=== PATIENT | female | born 1940 | race Caucasian/White ===

== ENCOUNTER 2021-01-14 14:54 | Inpatient (IN) | payer OTHER ==
[~2021-01-14] VITALS: Ht 152.4 cm; Wt 69.9 kg
--- NOTE | 2021-01-14 15:20 | NUR ---
FARHAN FROM HOME TO ER BED 12. AWAKE, ALERT BUT CONFUSED. NOT IN RESP DISTRESS. AMBULATORY. BROUGHT IN FOR GRAVE DISABILITY AND DANGER TO SELF. PT IS ON 5150 HOLD WRIITEN ON 01/14/21 @ 1300. PT WAS REPORTED TO BE PARANOID AND WONDERING OUTSIDE THE HOUSE. PT DENIES ANY SUICIDAL NOR HOMICAIDAL IDEATION. MD WAS AT THE BEDSIDE FOR EVAL.
[2021-01-14] MEDS ORDERED: METF-440 PO (15:35)
[2021-01-14] MEDS ORDERED: CHOL100062 PO (15:35)
[2021-01-14] MEDS ORDERED: FURO40TA5 PO (15:35)
[2021-01-14] MEDS ORDERED: SIMV-46 PO (15:35)
[2021-01-14 16:17] LABS: BASOPHILS % (AUTO) 0.4 % (0.0-2.0); EOSINOPHILS % (AUTO) 1.6 % (0.0-6.0); HEMATOCRIT 35 % (33-45); HEMOGLOBIN 11.8 g/dL (11.5-14.8); LYMPHOCYTES % (AUTO) 23.1 % (20.0-44.0); MEAN CORPUSCULAR HGB CONC 34 g/dl (31.0-36.0); MEAN CORPUSCULAR VOLUME 93 fL (82-100); MONOCYTES # (AUTO) 0.6 /CMM (0.1-1.30); MONOCYTES % (AUTO) 7.3 % (2.0-12.0); NEUTROPHILS # (AUTO) 5.9 /CMM (1.8-8.9); NEUTROPHILS % (AUTO) 67.6 % (43.0-81.0); PLATELET COUNT (AUTO) 239 /CMM (150-450); RED BLOOD CELL COUNT(AUTO) 3.77 MIL/uL (4.0-5.2); WHITE BLOOD COUNT (AUTO) 8.8 K/uL (4.3-11.0)
[2021-01-14 16:25] LABS: CALCIUM, SERUM 9.2 mg/dL (8.5-10.1); CARBON DIOXIDE 29 mmol/L (21-32); CHLORIDE 102 mmol/L (98-107); CREATININE 0.9 mg/dL (0.6-1.3); GLUCOSE 120 mg/dL (74-106); SODIUM SERUM 139 mmol/L (136-145); UREA NITROGEN, BLOOD 25 mg/dL (7-18)
[2021-01-14 16:35] LABS: BILIRUBIN,URINE Negative (NEGATIVE); COLOR,URINE YELLOW (YELLOW); LEUKOCYTE ESTERASE ,URINE Negative (NEGATIVE); NITRITE, URINE Negative (NEGATIVE); PROTEIN,URINE Negative (NEGATIVE); UGLUCOSE Negative (NEGATIVE); UROBILINOGEN,URINE 0.2 EU/dL (0.2)
[2021-01-14 16:40] LABS: ALANINE AMINOTRANSFERASE 16 U/L (12-78); ALBUMIN 3.4 g/dL (3.4-5.0); ALKALINE PHOSPHATASE 53 U/L (46-116); ASPARTATE AMINOTRANSFERASE 17 U/L (15-37); BILIRUBIN,DIRECT 0.1 mg/dL (0.0-0.2); BILIRUBIN,TOTAL 0.3 mg/dL (0.2-1.0); TOTAL PROTEIN, SERUM 6.7 g/dL (6.4-8.2)
[2021-01-14 16:41] LABS: ACETAMINOPHEN < 0 ug/ml (10-30); ALCOHOL, BLOOD < 3 mg/dL (0-0)
--- NOTE | 2021-01-14 17:28 | NUR ---
COVID 19 rapid Antigen results: NEGATIVE
[2021-01-14] MEDS ORDERED: METFORMIN 500 MG TABLET ONE (17:29)
[2021-01-14] MEDS ORDERED: METFORMIN 500 MG TABLET PO SCH (17:30)
--- NOTE | 2021-01-14 18:28 | NUR ---
IAN OZUNA () [phone] - CELL
--- NOTE | 2021-01-14 18:29 | NUR ---
US AT BEDSIDE
--- NOTE | 2021-01-14 19:19 | NUR ---
report given to zach salmeron for kathi
--- NOTE | 2021-01-14 19:57 | NUR ---
PT TRANSFERRED TO GPS
[2021-01-14 20:00] VITALS: BP 152/73
--- NOTE | 2021-01-14 20:00 | NUR ---
GPS RN-ADMISSION NOTES: ADMITTED AN 80-YR OLD FEMALE, FROM HOME. ADMITTED ON 5150 FOR DTS/GD. PER HOLD, PT PRESENTED CONFUSED, INCOHERENT, DISORIENTED, UNABLE TO ANSWER QUESTIONS APPROPRIATELY OR FOLLOW BASIC INSTRUCTIONS. PT JUST KEPT SAYING "SOMEONE JUST FLASHED DOWN THE KIDS ON THE TOILET" PT HAD SERVED LAUNDRY DETERGENT FOR IMAGINARY KIDS TO DRINK. PT'S EXPRESSED CONCERN FOR PT'S SAFETY SHE WANDERS OUT OF THE HOUSE, GETTING LOST, UNABLE TO RETURN TO HOME, CROSSING STREETS PLACING SELF AT RISK TO BE RUN OVER BY CARS. UPON FACE TO FACE ASSESSMENT, PATIENT IS A/OX1-2, CONFUSED, ANXIOUS, DISORGANIZED AND PARANOID. PT WAS ADVISED OF HER HOLD. PT'S RIGHTS HANDBOOK AND A GUIDE TO PRESCRIPTION MEDICATIONS GIVEN. IN NO APPARENT DISTRESS NOTED. BELONGINGS WERE INVENTORIED AND CHECKED FOR CONTRABAND. PT. IS UNDER THE PSYCHIATRIC CARE OF DR. KELLEY ORDERS OBTAINED AND UNDER THE MEDICAL CARE OF DR. PARSONS. SKIN BODY ASSESSMENT DONE. DENIES PAIN OR DISCOMFORT AT THIS TIME. OFFERED FLU/PNEUMONIA VACCINE, PATIENT STATES "NO, I DON'T WANT IT". SAFETY PRECAUTIONS IN PLACE. BED LOCKED AND IN LOWEST POSITION. SIDE RAILS UP X2. WILL CONTINUE TO MONITOR Q15 MIN ROUNDS FOR SAFETY AND BEHAVIOR.
[2021-01-14] MEDS ORDERED: ACETAMINOPHEN 325 MG TABLET PO PRN (20:30)
[2021-01-14] MEDS ORDERED: BLOOD SUGAR DIAGNOSTIC 1 EACH STRIP IN ONE (20:30)
[2021-01-14] MEDS ORDERED: MAGNESIUM HYDROXIDE 30 ML UDC PO PRN (20:30)
[2021-01-14] MEDS ORDERED: MAG HYDROX/AL HYDROX/SIMETH 30 ML UDC PO PRN (20:30)
[2021-01-15 06:48] LABS: CHOLESTEROL 110 mg/dL (<200); CREATININE 0.8 mg/dL (0.6-1.3); HDL CHOLESTEROL 52 mg/dL (40-60); LDL 47 mg/dL (0-99); TRIGLYCERIDES 66 mg/dL (30-150)
[2021-01-15 08:11] VITALS: BP 168/70
[2021-01-15] MEDS: METFORMIN 500 MG TABLET PO SCH ×2 (08:41→16:24)
[2021-01-15] MEDS: CHOLECALCIFEROL 1,000 UNIT TABLET (VIT D3) PO SCH (08:41)
--- NOTE | 2021-01-15 09:00 | NUR ---
RN NOTE- PT ALERT ORIENTED TO PERSON ONLY CONFUSED MED COMPLIANT , ELEVATED LOWER EXTREMITIES EDEMATOUS, NO BHAVIORAL ISSUES PO INTAKE GOOD
--- NOTE | 2021-01-15 09:20 | NUR ---
WOUND CARE CONSULT: PT SEEN FOR SKIN ASSESSMENT OF FEET AND LOWER LEGS. PT NOTED TO HAVE SOME CALLUSES TO FEET AND SOME EDEMA TO ANKLE AREAS. LEGS ELEVATED. WILL SEE PRN.
[2021-01-15] MEDS ORDERED: LORAZEPAM 0.5 MG TABLET PO PRN (10:30)
[2021-01-15] MEDS: busPIRone 5 MG TABLET PO SCH ×2 (12:46→16:24)
[2021-01-15] MEDS: risperiDONE 0.25 MG TABLET PO SCH ×2 (12:46→21:33)
[2021-01-15 16:00] VITALS: BP 139/75
[2021-01-15] MEDS: FUROSEMIDE 40 MG TABLET PO SCH (17:53)
[2021-01-15] MEDS: SIMVASTATIN 20 MG TABLET PO SCH (17:54)
--- NOTE | 2021-01-15 20:00 | NUR ---
RN NOTE PATIENT REFUSED VITALS DESPITE OF RISKS & BENEFITS EXPLANATIONS , GETS AGITATED, ANXIOUS, RESTLESS WHEN APPROACHED AGAIN. WILL TRY AGAIN LATER.
[2021-01-15] MEDS: ZOLPIDEM TARTRATE 5 MG TABLET PO PRN (23:36)
--- NOTE | 2021-01-15 23:37 | NUR ---
RN NOTE: INSOMNIA PATIENT IS UNABLE TO SLEEP, PRN AMBIEN 5 MG 1 TAB PO GIVEN. WILL CONTINUE TO MONITOR.
--- NOTE | 2021-01-16 06:56 | NUR ---
RN NOTE PATIENT REMAINS CONFUSED, FORGETFUL, ANXIOUS AT TIMES BUT REDIRECTABLE. SLEPT INTERMITTENTLY AT NIGHT. ALL NEEDS MET. KEPT CLEAN & DRY. WILL ENDORSE TO AM RN FOR CONTINUITY OF CARE.
[2021-01-16 08:00] VITALS: BP 131/89
[2021-01-16] MEDS: CHOLECALCIFEROL 1,000 UNIT TABLET (VIT D3) PO SCH (08:33)
[2021-01-16] MEDS: METFORMIN 500 MG TABLET PO SCH ×2 (08:34→16:47)
[2021-01-16] MEDS: risperiDONE 0.25 MG TABLET PO SCH ×2 (08:34→21:28)
[2021-01-16] MEDS: busPIRone 5 MG TABLET PO SCH ×3 (08:34→16:47)
--- NOTE | 2021-01-16 09:00 | NUR ---
RN NOTE- PT ALERT ORIENTED TO PERSON ONLY CONFUSED MED COMPLIANT , ELEVATED LOWER EXTREMITIES EDEMATOUS, NO BEHAVIORAL ISSUES PO INTAKE GOOD
--- NOTE | 2021-01-16 13:35 | NUR ---
Family Contact: SW spoke to the pts , Bala ([phone]), who stated that the pt has been having auditory and visual hallucinations since they got 2 years ago. Pts stated that he is not sure when the hallucinations started for her. SW discussed pts aftercare and how the pt stopped taking certain psych medications because she did not like how they made her feel. Pts stated that in terms of discharge planning he would like the pt to return home.
[2021-01-16 16:00] VITALS: BP 118/63
[2021-01-16] MEDS: FUROSEMIDE 40 MG TABLET PO SCH (17:21)
[2021-01-16] MEDS: SIMVASTATIN 20 MG TABLET PO SCH (17:21)
--- NOTE | 2021-01-16 19:30 | NUR ---
RN NOTES RECEIVED PATIENT AWAKE AND IN BED, NO S/S OR COMPLAINTS OF PAIN AT THIS TIME. PATIENT IS DISPLAYING NO S/S OF APPARENT DISTRESS AT THIS TIME. PATIENT'S BREATHING IS UNLABORED WITH EQUAL RISE AND FALL OF THE CHEST. PATIENT IS ALERT AND ORIENTED X 1-2 ON ROOM AIR WITH SPO2 96%. PATIENT IS COMPLIANT WITH MEDICATION, DISORGANIZED, RESPONDING TO INTERNAL STIMULI, ANXIOUS AND COOPERATIVE. PATIENT DENIES SUICIDE IDEATIONS AND HOMICIDAL IDEATIONS AT THIS TIME. PATIENT ASSISTED WITH TURNING AND REPOSITIONING Q2HR AND PRN FOR COMFORT AND CIRCULATION. PATIENT HAS NO NEEDS AT THIS TIME. SAFETY MEASURE PROVIDED, PATIENT BED SIDE RAILS UP X 2 FOR SAFETY, BED IS LOCKED AND LOW. WILL CONTINUE TO MONITOR AND ASSESS THROUGHOUT THE SHIFT
[2021-01-16 21:10] VITALS: BP 137/77
[2021-01-17 08:00] VITALS: BP 141/82
--- NOTE | 2021-01-17 09:11 | NUR ---
UR Note: ELLEN returned the call of Jordyn Ceja ([phone]), [employer] Instructor, and left a voicemail stating that the SW will be available for a live clinical at 4pm EST.
[2021-01-17] MEDS: CHOLECALCIFEROL 1,000 UNIT TABLET (VIT D3) PO SCH (09:30)
[2021-01-17] MEDS: METFORMIN 500 MG TABLET PO SCH ×2 (09:30→16:37)
[2021-01-17] MEDS: risperiDONE 0.25 MG TABLET PO SCH ×2 (09:30→21:14)
[2021-01-17] MEDS: busPIRone 5 MG TABLET PO SCH ×3 (09:30→16:37)
[2021-01-17] MEDS: Z GUARD REMEDY 4 OZ OINT TP SCH ×2 (11:45→21:17)
--- NOTE | 2021-01-17 13:05 | NUR ---
UR Note: SW called Jordyn Ceja ([phone]), [employer] Customer Sales Distributor, and left a voicemail providing the pts clinical and asking for additional days of authorization.
--- NOTE | 2021-01-17 13:48 | NUR ---
UR Note: ELLEN called [facility] performance improvement coordinator, Tiffanie ([phone]), and left a voicemail stating that the ELLEN would like aftercare providers in network to be faxed to the SW at [phone].
--- NOTE | 2021-01-17 13:50 | NUR ---
UR Note: Jordyn Ceja ([phone]), [employer] Winding Lathe Operator, contacted the SW and stated that the pt has been authorized an additional 4 days with coverage until Thursday, 01/21.
--- NOTE | 2021-01-17 15:35 | NUR ---
Initial Discharge Plan: Pt currently resides at her home located at [address] [place] [address] with her , Bala ([phone]). Per pt, she wants to return to her home and pts wants her home as well. SW will work with the pt and the MD regarding appropriate discharge planning. SW will form a safe and proper discharge.
[2021-01-17 16:00] VITALS: BP 150/60
[2021-01-17] MEDS: SIMVASTATIN 20 MG TABLET PO SCH (17:05)
[2021-01-17] MEDS: FUROSEMIDE 40 MG TABLET PO SCH (17:05)
--- NOTE | 2021-01-17 19:35 | NUR ---
RN NOTES RECEIVED PT IN A WHEELCHAIR RESTING COMFORTABLY OUTSIDE THE PT'S ROOM. PATIENT IN NO S/SX OF ACUTE DISTRESS AT THIS TIME. NO SOB NOTED. PATIENT'S BREATHING IS EVEN AND UNLABORED. PATIENT AROUSABLE TO VERBAL STIMULI, CALM BUT DISORIENTED & CONFUSED. NO SIGNS OF BEHAVIORAL AGGRESSION AT THE TIME OF RECEIVED, NO SUICIDE THOUGHTS AND HOMICIDAL IDEATIONS AT THIS TIME. PATIENT ASSISTED IN TURNING AND REPOSITIONING Q2HR AND PRN FOR COMFORT AND CIRCULATION. SAFETY AND COMFORT MEASURES HAVE BEEN PROVIDED AND IMPLEMENTED. PATIENT BED ALARM IS ON, BED'S SIDE RAILS UP X2 AND BED IS LOCKED AND LOW. . WILL CONTINUE TO MONITOR AND REASSESS FOR ANY CHANGES PER GPS PROTOCOL AND WILL CARRY OUT ANY ONGOING AND ACTIVE MD ORDER
[2021-01-17 21:01] VITALS: BP 135/67
[2021-01-17] MEDS: Z GUARD REMEDY 4 OZ OINT TP PRN (21:14)
[2021-01-17] MEDS: ZOLPIDEM TARTRATE 5 MG TABLET PO PRN (23:35)
--- NOTE | 2021-01-17 23:35 | NUR ---
RN NOTES PRN MEDS GIVEN FOR SLEEP (RUTH) COMPUTER AIDED DESIGN TECHNICIAN MADE AWARE. WILL CONTINUE TO ASSESS AND MONITOR THROUGHOUT THE SHIFT.
--- NOTE | 2021-01-18 06:15 | NUR ---
BEN NOTES PATIENT SEEN AND NOTED TO BE SITTING ON THE CHAIR BANGING HER R ARM ON THE TABLE TRAY OF THE [facility], SALES PERSON RESPONDED AND ADVISED PRIMARY RN, NOTED SKIN TEAR ON THE R FOREARM 5.5X3CM NOTED WITH SLIGHT BLEEDING. VANESSA CONTRERAS MADE AWARE. PROVIDED INITIAL TX; CLEANSE WITH NS AND PAT DRY COVER WITH DRY DRESSING; SECURED WITH KERLIX AND TAPE. UNABLE TO ASSESS PAIN DUE TO MENTAL STATUS. VANESSA CONTRERAS MADE AWARE. WILL CONTINUE TO ASSESS AND MONITOR UNTIL THE END OF THE SHIFT. Addendum: 01/18/21 at 0623 by RAQUEL FOSS RN ADDENDUM- TOOK PICTURE AND PLACED IN THE CHART, WILL REQUEST FOR WOUND CONSULT. VANESSA CONTRERAS MADE AWARE.
--- NOTE | 2021-01-18 06:20 | NUR ---
RN NOTES ATTEMPTED TO CALL PT'S FAMILY (IAN -[phone]) TO INFORM ABOUT THE INCIDENT OF SKIN WILMER OF THE PT, WAS ROUTED TO , REQUESTED FOR CALLBACK. RETURN CHECKER MADE AWARE. WILL ENDORSE TO AM SHIFT FOR FOLLOW THROUGH.
[2021-01-18 08:00] VITALS: BP 125/59
[2021-01-18] MEDS: risperiDONE 0.25 MG TABLET PO SCH ×2 (08:10→20:07)
[2021-01-18] MEDS: CHOLECALCIFEROL 1,000 UNIT TABLET (VIT D3) PO SCH (08:10)
[2021-01-18] MEDS: busPIRone 5 MG TABLET PO SCH ×3 (08:10→17:00)
[2021-01-18] MEDS: METFORMIN 500 MG TABLET PO SCH ×2 (08:10→17:00)
[2021-01-18] MEDS: Z GUARD REMEDY 4 OZ OINT TP SCH ×2 (10:17→20:08)
--- NOTE | 2021-01-18 11:17 | NUR ---
WOUND CARE CONSULT: SKIN TEAR NOTED TO RT ARM. PT IS AGITATED AT TIMES. RECOMMENDATIONS MADE FOR SKIN PROTECTION AND WOUND CARE. DISCUSSED WITH NURSING STAFF. MD IN AGREEMENT WITH PLAN OF CARE.
[2021-01-18 16:00] VITALS: BP 114/59
[2021-01-18] MEDS: SIMVASTATIN 20 MG TABLET PO SCH ×2 (17:00→17:37)
[2021-01-18] MEDS: FUROSEMIDE 40 MG TABLET PO SCH ×2 (17:00→17:36)
[2021-01-18 21:04] VITALS: BP 132/70
[2021-01-18] MEDS: TRAZODONE 50 MG TABLET PO SCH (21:13)
--- NOTE | 2021-01-19 01:40 | NUR ---
RN NOTES:OFFERD SLEEPING MEDS PT. REFUSED TO TAKE PRN MEDS.
[2021-01-19 08:00] VITALS: BP 128/97
[2021-01-19] MEDS: busPIRone 5 MG TABLET PO SCH ×4 (09:00→17:22)
[2021-01-19] MEDS: METFORMIN 500 MG TABLET PO SCH ×2 (09:00→17:22)
[2021-01-19] MEDS: risperiDONE 0.25 MG TABLET PO SCH ×3 (09:00→21:18)
[2021-01-19] MEDS: CHOLECALCIFEROL 1,000 UNIT TABLET (VIT D3) PO SCH ×2 (09:00→09:46)
[2021-01-19] MEDS: Z GUARD REMEDY 4 OZ OINT TP SCH ×2 (09:47→21:19)
[2021-01-19 16:00] VITALS: BP 161/62
--- NOTE | 2021-01-19 16:04 | NUR ---
refused all meds in am.took 1 pm med.
[2021-01-19] MEDS: SIMVASTATIN 20 MG TABLET PO SCH (17:22)
[2021-01-19] MEDS: FUROSEMIDE 40 MG TABLET PO SCH (17:22)
[2021-01-19 20:24] LABS: BASOPHILS % (AUTO) 0.3 % (0.0-2.0); EOSINOPHILS % (AUTO) 0.4 % (0.0-6.0); HEMATOCRIT 36 % (33-45); HEMOGLOBIN 12.3 g/dL (11.5-14.8); LYMPHOCYTES # (AUTO) 1.1 /CMM (0.8-4.8); LYMPHOCYTES % (AUTO) 8.1 % (20.0-44.0); MEAN CORPUSCULAR HGB CONC 34 g/dl (31.0-36.0); MEAN CORPUSCULAR VOLUME 91 fL (82-100); MONOCYTES # (AUTO) 0.8 /CMM (0.1-1.30); NEUTROPHILS # (AUTO) 11.7 /CMM (1.8-8.9); NEUTROPHILS % (AUTO) 85.2 % (43.0-81.0); PLATELET COUNT (AUTO) 256 /CMM (150-450); RED BLOOD CELL COUNT(AUTO) 3.96 MIL/uL (4.0-5.2); WHITE BLOOD COUNT (AUTO) 13.7 K/uL (4.3-11.0)
[2021-01-19 20:37] LABS: ALBUMIN 3.4 g/dL (3.4-5.0); BILIRUBIN,TOTAL 0.4 mg/dL (0.2-1.0); CALCIUM, SERUM 9.2 mg/dL (8.5-10.1); MAGNESIUM 1.5 mg/dL (1.8-2.4); POTASSIUM 3.7 mmol/L (3.5-5.1); TOTAL PROTEIN, SERUM 6.8 g/dL (6.4-8.2)
[2021-01-19 20:45] VITALS: BP 137/80
[2021-01-19] MEDS: TRAZODONE 50 MG TABLET PO SCH (22:01)
--- NOTE | 2021-01-19 23:42 | NUR ---
GPS RN NOTE, PATIENT LAB RESULTS ARE FOLLOWS CREAT 1.0, BUN 32, MAG 1.5, AND WBC 13.7. PATIENT VITALS ARE FOLLOWS B/P, 137/80, TEMP 98.0, RESPIRATIONS 18, PULSE 83, AND SPO2 96 % ON ROOM AIR. PAGED [employer] AND INFORMED DR AZALIA JUAREZ OF MY FINDINGS. DR JUAREZ ORDER MAGNESIUM OXIDE 400MG PO BID AND FOR THE FIRST DOSE TO START AT 0000. DR JUAREZ ALSO ORDERED TO ENDORSE A.M. SHIFT ROUNDING INTEREST TO EVALUATE PATIENT TO DETERMINE IF PATIENT IS A MEDICAL SURGICAL POSSIBLE ADMIT. ALL ORDERS NOTED AND CARRIED OUT WILL CONTINUE TO MONITOR THIS PATIENT WITH THE HELP OF STAFF.
[2021-01-20] MEDS: MAGNESIUM OXIDE 400 MG TABLET PO SCH ×3 (00:25→17:03)
[2021-01-20 08:00] VITALS: BP 133/58
[2021-01-20 08:10] VITALS: BP 133/58
[2021-01-20] MEDS: METFORMIN 500 MG TABLET PO SCH ×2 (09:23→17:03)
[2021-01-20] MEDS: CHOLECALCIFEROL 1,000 UNIT TABLET (VIT D3) PO SCH (09:23)
[2021-01-20] MEDS: busPIRone 5 MG TABLET PO SCH ×3 (09:23→17:03)
[2021-01-20] MEDS: risperiDONE 0.25 MG TABLET PO SCH ×2 (09:24→21:11)
[2021-01-20] MEDS: Z GUARD REMEDY 4 OZ OINT TP SCH ×2 (09:30→21:11)
--- NOTE | 2021-01-20 12:52 | NUR ---
PATIENT NOTICED BUN AND WBC HIGH, INFORMED MD AND NO NEW ORDER AT THIS TIME.
[2021-01-20 16:00] VITALS: BP 122/77
[2021-01-20] MEDS: FUROSEMIDE 40 MG TABLET PO SCH (17:03)
[2021-01-20] MEDS: SIMVASTATIN 20 MG TABLET PO SCH (17:03)
[2021-01-20 20:00] VITALS: BP 117/55
[2021-01-20] MEDS: TRAZODONE 50 MG TABLET PO SCH (21:11)
[2021-01-20] MEDS: ZOLPIDEM TARTRATE 5 MG TABLET PO PRN (23:00)
[2021-01-21 06:30] LABS: BASOPHILS % (AUTO) 0.4 % (0.0-2.0); EOSINOPHILS % (AUTO) 0.7 % (0.0-6.0); HEMATOCRIT 34 % (33-45); HEMOGLOBIN 11.5 g/dL (11.5-14.8); LYMPHOCYTES # (AUTO) 2.2 /CMM (0.8-4.8); LYMPHOCYTES % (AUTO) 17.4 % (20.0-44.0); MEAN CORPUSCULAR HGB CONC 34 g/dl (31.0-36.0); MEAN CORPUSCULAR VOLUME 91 fL (82-100); MONOCYTES % (AUTO) 7.5 % (2.0-12.0); NEUTROPHILS # (AUTO) 9.5 /CMM (1.8-8.9); PLATELET COUNT (AUTO) 209 /CMM (150-450); RED BLOOD CELL COUNT(AUTO) 3.74 MIL/uL (4.0-5.2); WHITE BLOOD COUNT (AUTO) 12.9 K/uL (4.3-11.0)
[2021-01-21 08:00] VITALS: BP 106/54
[2021-01-21] MEDS: METFORMIN 500 MG TABLET PO SCH ×2 (08:33→17:17)
[2021-01-21] MEDS: risperiDONE 0.25 MG TABLET PO SCH ×2 (08:33→20:49)
[2021-01-21] MEDS: busPIRone 5 MG TABLET PO SCH ×3 (08:33→17:17)
[2021-01-21] MEDS: CHOLECALCIFEROL 1,000 UNIT TABLET (VIT D3) PO SCH (08:33)
[2021-01-21] MEDS: MAGNESIUM OXIDE 400 MG TABLET PO SCH ×2 (08:33→17:17)
[2021-01-21] MEDS: Z GUARD REMEDY 4 OZ OINT TP SCH ×2 (09:00→20:50)
[2021-01-21] MEDS: Z GUARD REMEDY 4 OZ OINT TP PRN (09:35)
[2021-01-21 10:05] VITALS: BP 106/54
[2021-01-21] MEDS: MEMANTINE HCL 5 MG TABLET PO SCH (10:31)
--- NOTE | 2021-01-21 11:03 | NUR ---
Probable Cause Hearing: Pts [id number] hold was upheld for grave disability.
--- NOTE | 2021-01-21 13:47 | NUR ---
UR Note: Gena ([phone]), [employer] Business Analyst, contacted the SW and the SW conducted a live review. transport company manager stated that the pt has been authorized an additional 2 days with coverage until Tuesday 01/23.
[2021-01-21 16:00] VITALS: BP 150/61
[2021-01-21] MEDS: FUROSEMIDE 40 MG TABLET PO SCH (17:17)
[2021-01-21] MEDS: SIMVASTATIN 20 MG TABLET PO SCH (17:17)
--- NOTE | 2021-01-21 18:04 | NUR ---
GPS RN NOTES PATIENT RESTING IN THE ACTIVITY ROOM; WATCHING TV, TALKING TO OTHER PATIENTS, MED COMPLIANT
[2021-01-21 20:15] VITALS: BP 121/43
[2021-01-21] MEDS: DONEPEZIL 5 MG TABLET PO SCH (21:06)
[2021-01-21] MEDS: ENOXAPARIN SODIUM 40 MG/0.4 ML DISP.SYRIN SQ SCH (21:07)
[2021-01-21] MEDS: TRAZODONE 50 MG TABLET PO SCH (21:07)
[2021-01-21 22:12] VITALS: BP 121/43
[2021-01-21] MEDS: ZOLPIDEM TARTRATE 5 MG TABLET PO PRN (23:03)
--- NOTE | 2021-01-21 23:03 | NUR ---
GPS-RN NOTES: INSOMNIA PATIENT IS UNABLE TO SLEEP. PRN AMBIEN 5MG PO GIVEN ORDERED. WILL CONTINUE TO MONITOR.
[2021-01-22 04:28] LABS: BILIRUBIN,URINE NEGATIVE (NEGATIVE); COLOR,URINE YELLOW (YELLOW); LEUKOCYTE ESTERASE ,URINE SMALL (NEGATIVE); NITRITE, URINE POSITIVE (NEGATIVE); PROTEIN,URINE NEGATIVE (NEGATIVE); UGLUCOSE NEGATIVE (NEGATIVE); UROBILINOGEN,URINE 0.2 EU/dL (0.2)
[2021-01-22 04:31] LABS: BACTERIA,URINE 4+ /HPF (None Seen); SQUAMOUS EPITHELIAL CELL,UR Few /HPF (None Seen); URINE AMORPHOUS URATE Few /HPF (None Seen); WBC,URINE TOO NUMEROUS TO COUN /HPF (0-3)
--- NOTE | 2021-01-22 06:33 | NUR ---
GPS RN NOTE PATIENT REFUSED LABS THIS AM. EDUCATED ON IMPORTANCE OF MONITORING LAB VALUES WITH PATIENT CONTINUING TO REFUSE X 3. WILL ENDORSE TO AM NURSE.
[2021-01-22 08:00] VITALS: BP 123/54
[2021-01-22 08:54] LABS: BASOPHILS # (AUTO) 0.1 /CMM (0.0-0.2); BASOPHILS % (AUTO) 0.5 % (0.0-2.0); EOSINOPHILS % (AUTO) 0.3 % (0.0-6.0); HEMATOCRIT 37 % (33-45); HEMOGLOBIN 12.3 g/dL (11.5-14.8); LYMPHOCYTES # (AUTO) 1.5 /CMM (0.8-4.8); LYMPHOCYTES % (AUTO) 12.3 % (20.0-44.0); MEAN CORPUSCULAR HGB CONC 34 g/dl (31.0-36.0); MEAN CORPUSCULAR VOLUME 92 fL (82-100); MONOCYTES % (AUTO) 7.8 % (2.0-12.0); NEUTROPHILS # (AUTO) 9.8 /CMM (1.8-8.9); NEUTROPHILS % (AUTO) 79.1 % (43.0-81.0); PLATELET COUNT (AUTO) 206 /CMM (150-450); RED BLOOD CELL COUNT(AUTO) 3.99 MIL/uL (4.0-5.2); WHITE BLOOD COUNT (AUTO) 12.4 K/uL (4.3-11.0)
[2021-01-22] MEDS: risperiDONE 0.25 MG TABLET PO SCH ×2 (09:07→21:10)
[2021-01-22] MEDS: MAGNESIUM OXIDE 400 MG TABLET PO SCH ×2 (09:07→17:00)
[2021-01-22] MEDS: METFORMIN 500 MG TABLET PO SCH ×2 (09:07→17:00)
[2021-01-22] MEDS: MEMANTINE HCL 5 MG TABLET PO SCH (09:07)
[2021-01-22] MEDS: CHOLECALCIFEROL 1,000 UNIT TABLET (VIT D3) PO SCH (09:08)
[2021-01-22] MEDS: busPIRone 5 MG TABLET PO SCH ×3 (09:08→17:00)
[2021-01-22] MEDS: Z GUARD REMEDY 4 OZ OINT TP SCH ×2 (09:08→21:18)
[2021-01-22 10:16] LABS: CARBON DIOXIDE 34 mmol/L (21-32); CHLORIDE 98 mmol/L (98-107); CREATININE 0.9 mg/dL (0.6-1.3); GLUCOSE 208 mg/dL (74-106); POTASSIUM 3.2 mmol/L (3.5-5.1); SODIUM SERUM 136 mmol/L (136-145); UREA NITROGEN, BLOOD 29 mg/dL (7-18)
[2021-01-22 10:20] LABS: MAGNESIUM 1.3 mg/dL (1.8-2.4); PHOSPHORUS 3.5 mg/dL (2.5-4.9)
--- NOTE | 2021-01-22 11:16 | NUR ---
Family Contact: SW spoke to the pts , Bala ([phone]), and informed him that the pt is going to be discharged back home on . Pts stated that he will arrive around 11am. Pts stated that he has to return to work soon and stated that he cannot leave the pt home alone and SW stated that he can apply for SS caregiver. SW directed the pts step by step on how he can apply. Pts stated that he will start that process today.
--- NOTE | 2021-01-22 13:59 | NUR ---
RN NOTES INFORMED ANGEL ROCHA NP FOR LAB RESULTS. K: 3.2 AND MAG 1.3. NEW ORDERS MADE AND CARRIED OUT.
[2021-01-22] MEDS ORDERED: POTASSIUM CHLORIDE 10 MEQ TABLET.SA PO ONE (14:00)
[2021-01-22] MEDS: CEPHALEXIN MONOHYDRATE 500 MG CAPSULE PO SCH ×2 (14:47→21:10)
[2021-01-22 16:00] VITALS: BP 113/43
[2021-01-22] MEDS: FUROSEMIDE 40 MG TABLET PO SCH (17:56)
[2021-01-22] MEDS: SIMVASTATIN 20 MG TABLET PO SCH (17:56)
--- NOTE | 2021-01-22 18:27 | NUR ---
RN NOTES PT REFUSED PM MEDICATIONS, SAID "I HAD ENOUGH FOR TODAY NO MORE". EDUCATED THE IMPORTANCE OF COMPLIANCE, ATTEMPTED X3 STILL REFUSED. RADIOLOGY ASSISTANT AWARE. WILL CONTINUE TO MONITOR.
[2021-01-22 20:00] VITALS: BP 139/56
[2021-01-22] MEDS: DONEPEZIL 5 MG TABLET PO SCH (21:10)
[2021-01-22] MEDS: TRAZODONE 50 MG TABLET PO SCH (21:11)
[2021-01-22] MEDS: ENOXAPARIN SODIUM 40 MG/0.4 ML DISP.SYRIN SQ SCH (21:20)
[2021-01-23 08:00] VITALS: BP 137/53
--- NOTE | 2021-01-23 08:00 | NUR ---
RN OPENING NOTE PATIENT AWAKE IN BED. NO S/SX OF ACUTE DISTRESS NOTED. PATIENT IS CONFUSED,CALM,DISORGANIZED,PARANOID,DELUSIONAL,COOPERATIVE,WITH LIMITED SOCIAL INTERACTIONS WITH PEERS. COMPLIANT WITH MEDS. DENIES SI/HI/AVH AT THIS TIME. SAFETY PRECAUTIONS IN PLACE. WILL CONTINUE TO MONITOR.
[2021-01-23] MEDS: METFORMIN 500 MG TABLET PO SCH ×2 (08:25→17:25)
[2021-01-23] MEDS: CHOLECALCIFEROL 1,000 UNIT TABLET (VIT D3) PO SCH (08:25)
[2021-01-23] MEDS: MEMANTINE HCL 5 MG TABLET PO SCH (08:25)
[2021-01-23] MEDS: MAGNESIUM OXIDE 400 MG TABLET PO SCH ×2 (08:25→17:24)
[2021-01-23] MEDS: risperiDONE 0.25 MG TABLET PO SCH ×2 (08:26→21:29)
[2021-01-23] MEDS: CEPHALEXIN MONOHYDRATE 500 MG CAPSULE PO SCH ×2 (08:26→21:29)
[2021-01-23] MEDS: busPIRone 5 MG TABLET PO SCH ×3 (08:26→17:25)
[2021-01-23] MEDS: Z GUARD REMEDY 4 OZ OINT TP SCH ×2 (08:26→21:36)
[2021-01-23 09:03] LABS: BASOPHILS # (AUTO) 0.3 /CMM (0.0-0.2); BASOPHILS % (AUTO) 2.6 % (0.0-2.0); EOSINOPHILS % (AUTO) 1.4 % (0.0-6.0); HEMATOCRIT 38 % (33-45); HEMOGLOBIN 12.6 g/dL (11.5-14.8); LYMPHOCYTES # (AUTO) 0.9 /CMM (0.8-4.8); LYMPHOCYTES % (AUTO) 8.2 % (20.0-44.0); MEAN CORPUSCULAR HGB CONC 33 g/dl (31.0-36.0); MEAN CORPUSCULAR VOLUME 92 fL (82-100); MONOCYTES # (AUTO) 0.6 /CMM (0.1-1.30); MONOCYTES % (AUTO) 5.5 % (2.0-12.0); NEUTROPHILS # (AUTO) 9.2 /CMM (1.8-8.9); NEUTROPHILS % (AUTO) 82.3 % (43.0-81.0); PLATELET COUNT (AUTO) 223 /CMM (150-450); RED BLOOD CELL COUNT(AUTO) 4.12 MIL/uL (4.0-5.2); WHITE BLOOD COUNT (AUTO) 11.2 K/uL (4.3-11.0)
[2021-01-23 10:17] LABS: CALCIUM, SERUM 9.4 mg/dL (8.5-10.1); CREATININE 0.9 mg/dL (0.6-1.3); MAGNESIUM 1.6 mg/dL (1.8-2.4); PHOSPHORUS 3.7 mg/dL (2.5-4.9); POTASSIUM 3.5 mmol/L (3.5-5.1)
--- NOTE | 2021-01-23 11:51 | NUR ---
UR Note: ELLEN called Jordyn Ceja ([phone]), [employer] Customer Engagement Manager, and left a voicemail stating that the pt will be discharged home tomorrow and will not need additional authorization.
[2021-01-23 16:00] VITALS: BP 137/66
[2021-01-23] MEDS: FUROSEMIDE 40 MG TABLET PO SCH (17:24)
[2021-01-23] MEDS: SIMVASTATIN 20 MG TABLET PO SCH (17:25)
--- NOTE | 2021-01-23 18:40 | NUR ---
RN CLOSING NOTE PATIENT AWAKE IN BED. NO S/SX OF ACUTE DISTRESS NOTED. PATIENT IS CONFUSED,CALM, DISORGANIZED,DELUSIONAL,COOPERATIVE,WITH LIMITED SOCIAL INTERACTIONS WITH PEERS. COMPLIANT WITH MEDS. DENIES SI/HI/AVH AT THIS TIME. SAFETY PRECAUTIONS IN PLACE. REPORT GIVEN TO NIGHT NURSE FOR HU
[2021-01-23 20:00] VITALS: BP 144/91
[2021-01-23] MEDS: TRAZODONE 50 MG TABLET PO SCH (21:29)
[2021-01-23] MEDS: DONEPEZIL 5 MG TABLET PO SCH (21:29)
[2021-01-23] MEDS: ENOXAPARIN SODIUM 40 MG/0.4 ML DISP.SYRIN SQ SCH (21:31)
[2021-01-23] MEDS: ZOLPIDEM TARTRATE 5 MG TABLET PO PRN (22:57)
[2021-01-24 08:00] VITALS: BP 120/56
[2021-01-24] MEDS: risperiDONE 0.25 MG TABLET PO SCH (09:17)
[2021-01-24] MEDS: MAGNESIUM OXIDE 400 MG TABLET PO SCH (09:18)
[2021-01-24] MEDS: busPIRone 5 MG TABLET PO SCH (09:18)
[2021-01-24] MEDS: METFORMIN 500 MG TABLET PO SCH (09:18)
[2021-01-24] MEDS: MEMANTINE HCL 5 MG TABLET PO SCH (09:18)
[2021-01-24] MEDS: CEPHALEXIN MONOHYDRATE 500 MG CAPSULE PO SCH (09:18)
[2021-01-24] MEDS: CHOLECALCIFEROL 1,000 UNIT TABLET (VIT D3) PO SCH (09:18)
[2021-01-24] MEDS: Z GUARD REMEDY 4 OZ OINT TP SCH (09:19)
--- NOTE | 2021-01-24 10:00 | NUR ---
RN-CO: DR KELLEY GAVE AN ORDER TO DISCONTINUE HOLD AND DISCHARGE PATIENT TODAY.NOTED
--- NOTE | 2021-01-24 13:32 | NUR ---
Discharge Note: Pt will be discharged to her [place] at [address] [place] [id number] with her , Bala ([phone]), who will pick her up at 11AM. Upon discharge, the pt appears to be in a euthymic mood and presents with a distressed affect. Pt denies both suicidal and homicidal ideation as well as auditory and visual hallucinations. Pt will be under the care of psychiatrist, Dr. Norman, [place] at [address] [place] [address]; ([phone]) and mobility specialist, Dr. Lewis located at [address] [facility], [address] [id number]; ([phone]); fax: ([phone]). The multidisciplinary exit care form was done, printed, signed, and given to the patient.
--- NOTE | 2021-01-24 13:43 | NUR ---
UR Note: ELLEN called Jordyn Ceja ([phone]), [employer] Certified Medical Asst, and left a voicemail providing the pts discharge clinical.
== END 2021-01-24 11:40 | disposition home or self-care (01) | DRG 885 ==
LOC: ER 14:59 → GPS 16:50
PROVIDERS: ADMIT Psychiatry & Neurology Psychiatry; ATTEND Nurse Practitioner Family
DX: F29 Unspecified psychosis not due to a substance or known physiological condition (principal); I11.0 Hypertensive heart disease with heart failure; G93.41 Metabolic encephalopathy; I50.32 Chronic diastolic (congestive) heart failure; F03.91 Unspecified dementia, unspecified severity, with behavioral disturbance; N39.0 Urinary tract infection, site not specified; E11.9 Type 2 diabetes mellitus without complications; G40.909 Epilepsy, unspecified, not intractable, without status epilepticus; Z98.890 Other specified postprocedural states; Z95.0 Presence of cardiac pacemaker; E78.00 Pure hypercholesterolemia, unspecified; Z88.8 Allergy status to other drugs, medicaments and biological substances; Z79.84 Long term (current) use of oral hypoglycemic drugs; Z79.899 Other long term (current) drug therapy; D72.829 Elevated white blood cell count, unspecified; F20.9 Schizophrenia, unspecified; B96.89 Other specified bacterial agents as the cause of diseases classified elsewhere; Z86.718 Personal history of other venous thrombosis and embolism; Z91.81 History of falling
CPT/HCPCS: 36415; 80048-TC; 80053-TC; 80061-TC; 80076-TC; 81001; 82565-TC; 82962-TC; 83735-TC; 84100-TC; 85025-TC; 85730-TC; 87081-TC; 87086-TC; 87186-TC; 93970-TC; G0480; J1650